=== PATIENT | female | born 1970 | race Caucasian/White ===

== ENCOUNTER 2018-12-31 09:17 | Outpatient (CLI) | payer BC ==
--- NOTE | 2019-01-14 15:54 | MMO ---
Bilateral MAMMO Bilat Screen [facility]. CLINICAL HISTORY: Patient is 48 years old and is seen for screening. The patient has no family history of breast cancer. The patient has no personal history of cancer. The patient has a history of right Cyst Aspiration in September, - benign. VIEWS: The views performed were: bilateral craniocaudal with tomosynthesis; bilateral mediolateral oblique with tomosynthesis; and bilateral exaggerated craniocaudal. FILMS COMPARED: The present examination has been compared to prior imaging studies performed at [facility] on 09/07/2010, 09/10/2012 and 11/18/2013. MAMMOGRAM FINDINGS: The breasts are extremely dense, which may lower the sensitivity of mammography. There are no suspicious masses, suspicious calcifications, or new areas of architectural distortion. IMPRESSION: THERE IS NO MAMMOGRAPHIC EVIDENCE OF MALIGNANCY. A ROUTINE FOLLOW-UP MAMMOGRAM IN 1 YEAR IS RECOMMENDED. THE RESULTS OF THIS EXAM WERE SENT TO THE PATIENT. ACR BI-RADS Category 1 - Negative MAMMOGRAPHY NOTE: 1. A negative mammogram report should not delay a biopsy if a dominant of clinically suspicious mass is present. 2. Approximately 10% to 15% of breast cancers are not detected by mammography. 3. Adenosis and dense breasts may obscure an underlying neoplasm.
== END 2018-12-31 09:18 | disposition home or self-care (01) ==
LOC: BICMAMMO 09:17
PROVIDERS: ATTEND Obstetrics & Gynecology
DX: Z12.31 Encounter for screening mammogram for malignant neoplasm of breast (principal)
CPT/HCPCS: 77063; 77067

== ENCOUNTER 2019-09-01 06:33 | Outpatient (CLI) | payer BC ==
--- NOTE | 2019-09-01 09:19 | CT ---
EXAM: CT Abdomen Pelvis W WO con DATE: 09/01/2019 12:00 AM INDICATION: History of ulcerative colitis COMPARISON: None. FINDING: CT enterography protocol was performed. Noncontrast: There are multiple gallstones within the gallbladder. No renal or ureteral calculus is e vident. No free fluid is identified. Arterial phase exam: The celiac and SMA are widely patent. AMY is widely patent. There is mild eccent catarina noncalcified plaque involving the infrarenal abdominal aorta on image 20 series 3 causing minimal (10%) narrowing. Both common iliac arteries are widely patent. A bifurcations patent. The ext ernal iliac arteries are patent. There are single renal arteries bilaterally which are patent. No abnormal arterial enhancing lesion seen within the liver. No focal renal lesions evident. The pancrea s, spleen and adrenal glands are normal appearing. Venous phase: Venous phase demonstrates appropriate opacification of the mesenteric venous structures with a patent main portal vein. There is no abnormal wall thickening involving the small or large bowel. There is a normal appendix seen within the lower midline abdomen. There is mild amount retaine d stool within the colon. There is a fibroid uterus. The bladder, rectum and perirectal soft tissues are normal appearing. No lymphadenopathy is evident. SI joints demonstrate mild degenerative change. No periarticular erosions are present. IMPRESSION: 1. No active inflammatory change seen involving the rectum or colon. The small bowel is of normal ekaterina iber and had a normal appearance. 2. Mild atherosclerotic disease of the abdominal aorta. 3. Cholelithiasis 4. Fibroid uterus
== END 2019-09-01 06:34 | disposition home or self-care (01) ==
LOC: CT 06:33
PROVIDERS: ATTEND Internal Medicine Gastroenterology
DX: K51.50 Left sided colitis without complications (principal); K80.20 Calculus of gallbladder without cholecystitis without obstruction; D25.9 Leiomyoma of uterus, unspecified; I70.0 Atherosclerosis of aorta
CPT/HCPCS: 74178

== ENCOUNTER 2019-09-28 06:47 | Day surgery (SDC) | payer BC ==
[2019-09-25 10:54] VITALS: BMI 26.9
--- NOTE | 2019-09-28 16:06 | OP ---
DATE OF PROCEDURE: 09/28/2019 PROCEDURES PERFORMED: 1. Colonoscopy with biopsy. 2. Fecal microbiota transfer. PREOPERATIVE DIAGNOSES: 1. Recurrent Clostridium difficile colitis. 2. History of ulcerative colitis. DESCRIPTION OF PROCEDURE: Informed consent was obtained from the patient. She was sedated with total intravenous anesthesia. The rectal exam was performed and was normal. The colonoscope was advanced to the terminal ileum without difficulty. The mucosa of the terminal ileum appeared normal. The preparation quality was good. The ileocecal valve and appendiceal orifice were clearly identified. There was grainy colitis around the appendiceal orifice, consistent with her history of ulcerative colitis. Biopsies were obtained from this area. The rest of the cecum, ascending colon, transverse colon, and descending colon were normal. There was an inflamed segment with erythema and exudate between 22 to 30 cm and an area of diverticulosis, which has been seen on prior endoscopies. The distal sigmoid and rectum were normal. Biopsies were taken from the sigmoid. Total of 250 mL of donor stool were injected into the terminal ileum, right colon, and mid colon. The patient tolerated the procedure well without immediate complications. IMPRESSION: 1. Grainy colitis around the appendiceal orifice, consistent with her history of ulcerative colitis. 2. Erythema and exudate in the sigmoid colon between 20 and 30 cm, biopsied. There was diverticulosis in this area as well. 3. Otherwise normal colonoscopy to the terminal ileum. 4. 250 mL of donor stool were injected into the colon for fecal microbiota transfer. RECOMMENDATIONS: 1. Await histopathology. 2. Follow up in the office to determine her response to the fecal microbiota transfer. 3. If her symptoms continue, then I would focus treatment on the inflammatory bowel disease as the primary source of her symptoms. Job ID: [id number]
== END 2019-09-28 11:05 | disposition home or self-care (01) ==
LOC: SDC 06:47
PROVIDERS: ATTEND Internal Medicine Gastroenterology
PROC: 0DBH8ZX Excision of Cecum, Via Natural or Artificial Opening Endoscopic, Diagnostic (ICD-10-PCS; principal; 2019-09-28)
PROC: 0DBN8ZX Excision of Sigmoid Colon, Via Natural or Artificial Opening Endoscopic, Diagnostic (ICD-10-PCS; principal; 2019-09-28)
DX: A04.71 Enterocolitis due to Clostridium difficile, recurrent (principal); K57.30 Diverticulosis of large intestine without perforation or abscess without bleeding; Z88.8 Allergy status to other drugs, medicaments and biological substances; Z91.040 Latex allergy status
CPT/HCPCS: 88305

== ENCOUNTER 2021-01-17 19:30 | Outpatient (CLI) | payer OTHER | END 2021-01-17 19:31 | disposition home or self-care (01) | LOC: SLEEPLAB 19:30 | PROVIDERS: ATTEND Family Medicine | DX: G47.33 Obstructive sleep apnea (adult) (pediatric) (principal); R53.82 Chronic fatigue, unspecified; R09.89 Other specified symptoms and signs involving the circulatory and respiratory systems; G31.84 Mild cognitive impairment of uncertain or unknown etiology; R51.9 Headache, unspecified; K21.9 Gastro-esophageal reflux disease without esophagitis; R35.1 Nocturia; R06.83 Snoring; G47.10 Hypersomnia, unspecified; G47.00 Insomnia, unspecified; E66.9 Obesity, unspecified; Z68.30 Body mass index [BMI] 30.0-30.9, adult | CPT/HCPCS: 95811 ==

== ENCOUNTER 2025-05-18 07:31 | Outpatient (CLI) | payer OTHER | END 2025-05-18 07:32 | disposition home or self-care (01) | LOC: BICULT 07:31 | PROVIDERS: ATTEND Nurse Practitioner Family | DX: K44.9 Diaphragmatic hernia without obstruction or gangrene (principal); R07.89 Other chest pain; R63.5 Abnormal weight gain; G47.33 Obstructive sleep apnea (adult) (pediatric); R60.9 Edema, unspecified; K80.20 Calculus of gallbladder without cholecystitis without obstruction; K76.0 Fatty (change of) liver, not elsewhere classified; Z68.31 Body mass index [BMI] 31.0-31.9, adult | CPT/HCPCS: 76705 ==